=== PATIENT | male | born 2005 | race Hispanic/Latino ===

== ENCOUNTER 2024-01-25 17:20 | Emergency (ER) | payer MEDICAID, OTHER, SELFPAY ==
[~2024-01-25] VITALS: Ht 170.2 cm; Wt 70.4 kg
[2024-01-25 18:09] LABS: BASO # 0.1 10^3/uL (0.0-0.2); BASO % 0.4 % (0.0-1.0); EOS % 0.2 % (0.0-3.0); HEMATOCRIT 47.9 % (42.0-52.0); HEMOGLOBIN 16.9 g/dl (13.5-17.5); LYMPH # 2.1 10^3/uL (1.5-5.0); LYMPH % 11.4 % (24.0-44.0); MEAN CORPUSCULAR HEMOGLOBIN 29.8 pg (27.0-33.0); MEAN CORPUSCULAR HGB CONC 35.3 g/dl (32.0-36.5); MEAN CORPUSCULAR VOLUME 84.3 fl (80.0-96.0); MONO # 0.7 10^3/uL (0.0-0.8); MONO % 3.7 % (2.0-8.0); NEUTROPHILS # 15.2 10^3/uL (1.5-8.5); NEUTROPHILS % 83.9 % (36.0-66.0); PLATELET COUNT, AUTOMATED 361 10^3/uL (150-450); RED BLOOD COUNT 5.68 10^6/uL (4.30-6.10); WHITE BLOOD COUNT 18.2 10^3/uL (4.0-10.0)
[2024-01-25 18:36] LABS: LIPASE 31 U/L (12-53)
[2024-01-25 18:38] LABS: ALBUMIN 4.9 G/DL (3.2-5.2); ALKALINE PHOSPHATASE 112 U/L (40-129); ALT/SGPT 66 U/L (7.0-40); AST/SGOT 22 U/L (<34); BILIRUBIN,DIRECT 0.2 MG/DL (<0.4); BILIRUBIN,TOTAL 0.7 MG/DL (0.3-1.2); BLOOD UREA NITROGEN 19 MG/DL (9-23); CALCIUM LEVEL 10.4 MG/DL (8.5-10.1); CARBON DIOXIDE LEVEL 24 MMOL/L (20-31); CHLORIDE LEVEL 106 MMOL/L (98-107); CREATININE FOR GFR 1.14 MG/DL (0.70-1.30); GLUCOSE, FASTING 119 MG/DL (60-100); POTASSIUM SERUM 3.8 MMOL/L (3.5-5.1); SODIUM LEVEL 140 MMOL/L (136-145); TOTAL PROTEIN 8.3 G/DL (5.7-8.2)
[2024-01-25] MEDS: ONDANSETRON 4MG 2ML VIAL IV ONE (20:10)
[2024-01-25] MEDS ORDERED: ISOVUE-370 76% 100ML VIAL As Ordered ONE (20:23)
[2024-01-25] MEDS: MORPHINE 4 MG/ML 1ML VIAL IV PRN (21:14)
[2024-01-25] MEDS: KETOROLAC 30 MG/ML 1ML VIAL IV ONE (22:14)
[2024-01-25] MEDS: METOCLOPRAMIDE INJ 10MG/2ML VIAL IV ONE (22:14)
[2024-01-25 23:00] VITALS: BP 129/59; TEMP 98.7
[2024-01-25 23:15] VITALS: O2SAT 98
[2024-01-25] MEDS ORDERED: FLOM0.4C39 PO (23:19)
[2024-01-25] MEDS ORDERED: ONDA-282 PO (23:19)
[2024-01-25] MEDS ORDERED: KETO10TAB PO (23:19)
[2024-01-25] MEDS: TAMSULOSIN 0.4 MG CAP PO ONE (23:28)
== END 2024-01-25 23:36 | disposition home or self-care (01) ==
LOC: M ED 17:20
DX: N20.1 Calculus of ureter (principal); Z79.83 Long term (current) use of bisphosphonates; Z79.899 Other long term (current) drug therapy
CPT/HCPCS: 74177; 80048; 80076; 81001; 83605; 83690; 85025; 87040; 99284; J1885; J2405; J2765; Q9967